=== PATIENT | male | born 1995 | race Two or more races ===

== ENCOUNTER 2021-10-23 16:26 | Emergency (ER) | payer MEDICAID ==
[~2021-10-23] VITALS: Ht 172.7 cm; Wt 90.0 kg
[2021-10-23 18:52] LABS: Basophils # (auto) 0.1 10 ^3/uL (0-0.2); Basophils % (auto) 0.6 % (0.0-2.0); Eosinophils # (auto) 0.1 10 ^3/uL (0-0.8); Hemoglobin 16.2 g/dL (13.5-17.5); Lymphocytes # (auto) 1.9 10 ^3/uL (0.4-5.4); Lymphocytes % (auto) 22.1 % (10.0-50.0); Mean Corpuscular Hemoglobin 28.6 pg (28.0-32.0); Mean Corpuscular Volume 86.5 fL (80.0-100.0); Monocytes # (auto) 0.7 10 ^3/uL (0-1.3); Monocytes % (auto) 8.1 % (0.0-12.0); Neutrophils # (auto) 5.9 10 ^3/uL (1.6-8.6); Neutrophils % (auto) 68.2 % (37.0-80.0); Red Blood Cells 5.67 10^6/uL (4.5-5.90); White Blood Cell 8.7 10^3/uL (4.4-10.8)
[2021-10-23 19:04] LABS: Albumin 4.4 g/dL (3.4-5.0); BUN/Creatinine Ratio 14.7; Calcium 9.3 mg/dL (8.5-10.1); Potassium 4.2 mmol/L (3.5-5.1)
[2021-10-23 19:07] LABS: Bilirubin, Total 0.6 mg/dL (0.2-1.0); Total Protein 7.5 g/dL (6.4-8.2)
[2021-10-23 19:24] LABS: Salicylate < 1.7 mg/dL (2.8-20.0)
[2021-10-23 19:26] LABS: Acetaminophen < 2.0 ug/mL (10-30)
[2021-10-24 03:47] LABS: Alcohol, Urine < 3.0 mg/dL (0-10); Amphetamine Screen, Urine NEGATIVE (NEGATIVE); Barbiturate Scree,Urine NEGATIVE (NEGATIVE); Benzodiazephine Screen, Urine POSITIVE (NEGATIVE); Cannabinoid Screen, Urine NEGATIVE (NEGATIVE); Cocaine Screen, Urine NEGATIVE (NEGATIVE); Opiate Scree,Urine NEGATIVE (NEGATIVE); Phencyclidine Screen, Urine NEGATIVE (NEGATIVE)
[2021-10-24 03:52] LABS: Urine Bacteria NONE SEEN /hpf (None Seen); Urine Blood Negative /uL (Negative); Urine Mucus FEW (None Seen); Urine Specific Gravity 1.035 (1.001-1.035); Urine WBC 44 /hpf (0 - 3)
[2021-10-24 05:36] VITALS: BP 123/78
== END 2021-10-24 08:39 | disposition left against medical advice (07) ==
LOC: ER 16:26 → EDBD 16:26 → ER 10-24 08:39
DX: R45.851 Suicidal ideations (principal)
CPT/HCPCS: 36415; 70450; 80053; 80307; 80320; 80329; 81001; 85025

== ENCOUNTER 2024-03-27 15:27 | Emergency (ER) | payer MEDICAID, OTHER ==
[~2024-03-27] VITALS: Ht 172.7 cm; Wt 103.0 kg
--- NOTE | 2024-03-27 15:55 | ED.PDOC ---
History of Present Illness HPI Comments 28-year-old male who comes in with chief complaint of abdominal pain as well as diarrhea, nausea and chills. The patient states that symptoms started over the last couple of days. He states that his son was sick and he had somewhat similar symptoms. There has been no vomiting at this time. He was able to a mbulate into the emergency department's without any difficulty. Time Seen by MD: 15:50 Reviewed Notes: Nurses Notes, Medications, Allergies (No allergies to medications) Allergies: Coded Allergies: NO KNOWN ALLERGIES (Unverified , 06/27/15) Home Meds Active Scripts Ondansetron Odt 4MG Tab (ZOFRAN PO) 4 Mg Tb, 4 MG PO Q8HP PRN for 5 Days, #15 TAB ODT TAB-DISSOLVE IN MOUTH, THEN SWALLOW Prov:ROME ARROYO MD 03/27/24 Pantoprazole Sodium Sesquihydr (Protonix) 40 Mg Tab, 40 MG PO DAILY, #30 TAB Prov:ROME ARROYO MD 03/27/24 Information Source: Patient Mode of Arrival: Ambulatory Severity: Moderate Duration: Since onset Prehospital treatment: None Location: Right-sided abdominal pain Quality The pain is sharp in nature Associated signs and symptoms The patient was having some nausea as well as diarrhea Past Medical History PAST MEDICAL HISTORY: Kidney Stones Surgical History: Denies all surgeries Family History Family History: Family hx of DM Social History Smoker: Non-Smoker Alcohol: Denies ETOH Use Drugs: Denies Drug Use Lives In: Home Constitutional: reports: chills; denies: diaphoresis, fatigue, fever, malaise, sweats, weakness, others EENTM: denies: blurred vision, double vision, ear bleeding, ear discharge, ear drainage, ear pain, ear ringing, eye pain, eye redness, hearing loss, mouth pain, mouth swelling, nasal discharge, nose bleeding, nose congestion, nose pain, photophobia, tearing, throat pain, throat swelling, voice changes, others Respiratory: denies: cough, hemoptysis, orthopnea, SOB at rest, shortness of breath, SOB with excertion, stridor, wheezing, others Cardiovascular: denies: chest pain, dizzy spells, diaphoresis, Dyspnea on exertion, edema, irregular heart beat, left arm pain, lightheadedness, palpitations, PND, syncope, others Gastrointestinal: reports: abdominal pain, diarrhea, nausea; denies: abdomen distended, blood streaked bowels, constipated, dysphagia, difficulty swallowing, hematemesis, melena, poor appetite, poor fluid intake, rectal bleeding, rectal pain, vomiting, others Genitourinary: denies: burning, dysuria, flank pain, frequency, hematuria, incontinence, penile discharge, penile sore, pain, testicle pain, testicle swelling, urgency, others Neurological: denies: dizziness, fainting, headache, left sided numbness, left sided weakness, numbness, paresthesia, pre-existing deficit, right sided numbness, right sided weakness, seizure, speech problems, tingling, tremors, weakness, others Musculoskeletal: denies: back pain, gout, joint pain, joint swelling, muscle pain, muscle stiffness, neck pain, others Integumetry: denies: bruises, change in color, change in hair/nails, dryness, laceration, lesions, lumps, rash, wounds, others Allergic/Immunocompromised: denies: Difficulty Healing, Frequent Infections, Hives, Itching, others Hematologic/Lymphatic: denies: anemia, blood clots, easy bleeding, easy bruising, swollen glands, others Endocrine: denies: excessive hunger, excessive sweating, excessive thirst, excessive urination, flushing, intolerance to cold, intolerance to heat, unexplained weight gain, unexplained weight loss, others Psychiatric: denies: anxiety, bipolar disorder, depression, hopeless, panic disorder, schizophrenia, sleepless, suicidal, others Physical Exam General Appearance: Moderate Distress HEENT: Normal ENT Inspection, Pharynx Normal, TMs Normal Neck: Full Range of Motion, Non-Tender, Normal, Normal Inspection Respiratory: Chest Non-Tender, Lungs Clear, No Accessory Muscle Use, No Respiratory Distress, Normal Breath Sounds Cardiovascular: No Edema, No JVD, No Murmur, No Gallop, Normal Peripheral Pulses, Regular Rate/Rhythm Breast Exam: Deferred Gastrointestinal: No Organomegaly, No Pulsatile Mass, Normal Bowel Sounds, RLQ, RUQ, Soft, Tenderness Genitalia: Deferred Pelvic: Deferred Rectal: Deferred Extremities: No calf tenderness, Normal capillary refill, Normal inspection, Normal range of motion, Non-tender, No pedal edema Musculoskeletal : Apperance: Normal Neurologic: Alert, 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 Was a procedure done?: No Differential Dx Considerations may include: gastritis, gastroenteritis X-Ray, Labs, Meds, VS Vital Signs Date Time Temp Pulse Resp B/P (MAP) Pulse Ox O2 Delivery O2 Flow Rate FiO2 03/27/24 17:43 94 18 96 Room Air 03/27/24 17:43 98.3 94 18 131/87 (102) 96 98.3 03/27/24 16:07 98.0 88 20 136/85 (102) 97 Lab Test 03/27/24 16:29 Range/Units White Blood Count 6.5 4.4-10.8 10^3/uL Red Blood Count 6.10 H 4.5-5.90 10^6/uL Hemoglobin 18.1 H 13.5-17.5 g/dL Hematocrit 53.4 H 41.0-53.0 % Mean Corpuscular Volume 87.5 80.0-100.0 fL Mean Corpuscular Hemoglobin 29.7 28.0-32.0 pg Mean Corpuscular Hemoglobin Concent 33.9 32.0-36.0 g/dL Red Cell Distribution Width 14.2 11.8-14.3 % Platelet Count 200 140-450 10^3/uL Mean Platelet Volume 8.2 6.9-10.8 fL Neutrophils (%) (Auto) 37.0-80.0 % Lymphocytes (%) (Auto) 10.0-50.0 % Monocytes (%) (Auto) 0.0-12.0 % Basophils (%) (Auto) 0.0-2.0 % Neutrophils # (Auto) 1.6-8.6 10 ^3/uL Lymphocytes # (Auto) 0.4-5.4 10 ^3/uL Monocytes # (Auto) 0-1.3 10 ^3/uL Differential Total Cells Counted 100.0 100 Neutrophils % (Manual) 64 37.0-80.0 Band Neutrophils % (Manual) 0 Lymphocytes % (Manual) 20 10.0-50.0 Monocytes % (Manual) 14 H 0-12 Eosinophils % (Manual) 2 0-7 Basophils % (Manual) 0 0.0-2.0 Metamyelocytes % (manual) 0 Myelocytes % (Manual) 0 Promyelocytes % (Manual) 0 Blast Cells % (Manual) 0 Reactive Lymphocytes 0 Platelet Estimate Adequate Sodium Level 138 136-145 mmol/L Potassium Level 3.4 L 3.5-5.1 mmol/L Chloride Level 106 98-107 mmol/L Carbon Dioxide Level 25 20-31 mmol/L Anion Gap 7 5-15 Blood Urea Nitrogen 15 9-23 mg/dL Creatinine 1.19 0.700-1.30 mg/dL Glomerular Filtration Rate Calc 86 >90 mL/min BUN/Creatinine Ratio 12.6 10.0-20.0 Serum Glucose 94 74-106 mg/dL Calcium Level 9.9 8.7-10.4 mg/dL Total Bilirubin 0.4 0.2-1.0 mg/dL Aspartate Amino Transferase (AST) 30 13-40 U/L Alanine Aminotransferase (ALT) 64 H 7-40 U/L Alkaline Phosphatase 99 46-116 U/L Total Protein 7.7 5.7-8.2 g/dL Albumin 4.9 H 3.2-4.8 g/dL Lipase 42 12-53 U/L Current Medications Medications (Trade) Dose Ordered Sig/Renee Route Start Time Stop Time Status Last Admin Sodium Chloride 1,000 ml @ 1,000 mls/hr Q1H ONCE IVB 03/27/24 16:15 03/27/24 17:14 DC 03/27/24 17:36 Ketorolac Tromethamine (Toradol Injection) 30 mg ONCE ONCE IV 03/27/24 16:15 03/27/24 16:16 DC 03/27/24 18:29 CT scan of the abdomen and pelvis shows: IMPRESSION: 1. There are bilateral small nonobstructive renal calculi measuring up to 5 mm. 2. There is no evidence of acute appendicitis. There are nonspecific small subcentimeter mesenteric lymph nodes which May relate to mesenteric adenitis. Clinical correlation is recommended. HS:Y the patient's chemistry panel is within normal limits The CBC is within normal limits At this time, the patient will be discharged on Zofran and Protonix The patient will return to the emergency department's condition worsens The patient understands and agrees with the management. Images Reviewed?: Images reviewed and evaluated by me Time of 1ST Reevaluation: 16:20 Reevaluation 1ST: Unchanged Patient Education/Counseling: Diagnosis, Treatment, Prognosis, Need For Follow Up Family Education/Counseling: No Family Present Departure 1 Departure Time of Disposition: 16:02 Impression: Primary Impression: Abdominal pain Qualified Codes: R10.9 - Unspecified abdominal pain Additional Impression: Acute gastritis Qualified Codes: K29.00 - Acute gastritis without bleeding Disposition: HOME / SELF CARE / HOMELESS Condition: Fair e-Prescriptions Ondansetron Odt 4MG Tab (ZOFRAN PO) 4 Mg Tb 4 MG PO Q8HP PRN for 5 Days, #15 TAB ODT TAB-DISSOLVE IN MOUTH, THEN SWALLOW Prov: ROME ARROYO MD 03/27/24 Pantoprazole Sodium Sesquihydr (Protonix) 40 Mg Tab 40 MG PO DAILY, #30 TAB Prov: ROME ARROYO MD 03/27/24 Discharged With: Self Critical Care Note Critical Care Time?: No Stability Stability form required: No Heart Score Heart Score: Heart Score Response (Comments) Value History N/A 0 EKG N/A 0 Age N/A 0 Risk Factors N/A 0 Troponin N/A 0 Total 0 I personally scribed for ROME ARROYO MD ([email or web address]) on 03/27/24 at 15:55. Electronically submitted by Raymundo Holley ([email or web address]). I personally scribed for ROME ARROYO MD ([email or web address]) on 03/27/24 at 17:33. Electronically submitted by Raymundo Holley ([email or web address]). ROME ARROYO MD Mar 27, 2024 15:55
--- NOTE | 2024-03-27 16:46 | DVH ---
CT ABDOMEN AND PELVIS WITHOUT CONTRAST CLINICAL HISTORY: right sided abd pain TECHNIQUE: Multiple contiguous axial images of the abdomen and pelvis without intravenous contrast. The images were reformatted degenerate coronal and sagittal reconstructions. All CT scans at this medical facility are performed using dose modulation techniques as appropriate t o a performed exam including the following:Automated exposure control was utilized; adjustment of the MA and/or KV according to patient size; and use of iterative reconstruction technique. Radiation Dose Information: CT Dose: CTDI volume is 24 mGy. Dose-length product is 15 19 mGy*cm Comparison: None FINDINGS: Evaluation of the abdomen and pelvis is limited without intravenous contrast. There are several left upper pole renal calculi measuring up 5 mm. There is a 2 mm calculus in the upper pole of the right k idney. There is no hydronephrosis. There is no evidence of a ureteral calculus or hydroureter. The liver, gallbladder, pancreas, kidneys, adrenal glands, and spleen appear within normal limits. There are nonspecific small subcentimeter mesenteric lymph nodes. There is no retroperitoneal lymphad enopathy. There is no free fluid or free air. The stomach grossly appears unremarkable. The small and large bowel loops demonstrate normal caliber . A normal air-filled appendix is seen in the right lower quadrant abdomen. The abdominal aorta and IVC appear within normal limits. The bladder appears unremarkable for the degree of distention. Pelvic organ appears within normal rocha its. There is no gross evidence of a pelvic mass. There is no free fluid collection. Lung bases are clear. There is no acute osseous abnormality. IMPRESSION: 1. There are bilateral small nonobstructive renal calculi measuring up to 5 mm. 2. There is no evidence of acute appendicitis. There are nonspecific small subcentimeter mesenteric l ymph nodes which May relate to mesenteric adenitis. Clinical correlation is recommended. HS:Y
[2024-03-27 16:57] LABS: Hemoglobin 18.1 g/dL (13.5-17.5)
[2024-03-27 16:59] LABS: Hematocrit 53.4 % (41.0-53.0); Mean Corpuscular Hemoglobin 29.7 pg (28.0-32.0); Mean Corpuscular Hgb Conc. 33.9 g/dL (32.0-36.0); Mean Corpuscular Volume 87.5 fL (80.0-100.0); Platelet Count (auto) 200 10^3/uL (140-450); Red Cell Distribution Width 14.2 % (11.8-14.3); White Blood Cell 6.5 10^3/uL (4.4-10.8)
[2024-03-27 17:00] LABS: Alkaline Phosphatase 99 U/L (46-116); Anion Gap 7 (5-15); Aspartate Aminotransferase 30 U/L (13-40); BUN/Creatinine Ratio 12.6 (10.0-20.0); Bilirubin, Total 0.4 mg/dL (0.2-1.0); Blood Urea Nitrogen 15 mg/dL (9-23); Calcium 9.9 mg/dL (8.7-10.4); Carbon Dioxide 25 mmol/L (20-31); Chloride 106 mmol/L (98-107); Glucose 94 mg/dL (74-106); Sodium 138 mmol/L (136-145)
[2024-03-27 17:01] LABS: Total Protein 7.7 g/dL (5.7-8.2)
[2024-03-27 17:11] LABS: Alanine Aminotransferase 64 U/L (7-40); Albumin 4.9 g/dL (3.2-4.8); Potassium 3.4 mmol/L (3.5-5.1)
[2024-03-27 17:13] LABS: Band Neutrophils % (manual) 0; Basophils % (manual) 0 (0.0-2.0); Blast Cells 0; Metamyelocytes % 0; Myelocytes % 0; Promyelocytes % 0; Reactive Lymphocytes 0
[2024-03-27 17:21] LABS: Lipase 42 U/L (12-53)
[2024-03-27] MEDS: SODIUM CHLORIDE 0.9% 1,000 ML IVB ONE (17:36)
[2024-03-27] MEDS: KETOROLAC TROMETH 30 MG/ML 1ML VIAL IV ONE (18:29)
[2024-03-27 19:16] LABS: Eosinophils % (manual) 2 (0-7); Lymphocytes % (manual) 20 (10.0-50.0); Monocytes % (manual) 14 (0-12); Platelet Estimate Adequate
[2024-03-27] MEDS ORDERED: ZOFR4T PO (19:22)
[2024-03-27] MEDS ORDERED: PANT40TA2 PO (19:22)
[2024-03-27 19:55] VITALS: BP 105/75; PULSE 89; RESP 18; TEMP 98; O2SAT 98
== END 2024-03-27 20:47 | disposition home or self-care (01) ==
LOC: ER 15:27
DX: K29.00 Acute gastritis without bleeding (principal); Z79.899 Other long term (current) drug therapy
CPT/HCPCS: 36415; 74176; 80053; 83690; 85007; 85027; 96361; 96374; 99285; J1885; J7030

== ENCOUNTER 2024-03-30 23:36 | Emergency (ER) | payer MEDICAID ==
[~2024-03-30] VITALS: Ht 177.8 cm; Wt 101.8 kg
[~2024-03-30 23:36] MED LIST: PANT40TA2 PO; ZOFR4T PO
--- NOTE | 2024-03-31 | ED.PDOC ---
History of Present Illness HPI Comments 28-year-old male brought in by ambulance complains of sudden onset severe right flank pain about 1 hour ago while driving a car. Patient states that he was told he had undescended kidney stones few days ago. Unprovoked. Chief Complaint: Flank Pain Time Seen by MD: 23:46 Allergies: Coded Allergies: NO KNOWN ALLERGIES (Unverified , 06/27/15) Home Meds Active Scripts Meloxicam (Meloxicam) 7.5 Mg Tab, 1 TAB PO DAILY PRN for 10 Days, #10 TAB 2 Refills Prov:NESTOR MARTIN MD 03/31/24 Tamsulosin Hcl (Flomax) 0.4 Mg Cap, 1 CAP PO qhs for 10 Days, #20 CAP 11 Refills Prov:NESTOR MARTIN MD 03/31/24 Ondansetron Odt 4MG Tab (ZOFRAN PO) 4 Mg Tb, 4 MG PO Q8HP PRN for 5 Days, #15 T AB ODT TAB-DISSOLVE IN MOUTH, THEN SWALLOW Prov:ROME ARROYO MD 03/27/24 Pantoprazole Sodium Sesquihydr (Protonix) 40 Mg Tab, 40 MG PO DAILY, #30 TAB Prov:ROME ARROYO MD 03/27/24 Information Source: Patient Mode of Arrival: EMS Severity: Severe Timing: Hours Duration: Since onset Past Medical History PAST MEDICAL HISTORY: Kidney Stones Surgical History: Denies all surgeries Family History Family History: Family hx of DM Social History Smoker: Non-Smoker Alcohol: Denies ETOH Use Drugs: Denies Drug Use Lives In: Home Gastrointestinal: reports: abdominal pain, nausea, others (Right flank pain) All Other Systems: Reviewed and Negative Physical Exam General Appearance: Moderate Distress, Normal HEENT: Normal ENT Inspection, Pharynx Normal, TMs Normal Neck: Full Range of Motion, Non-Tender, Normal, Normal Inspection Respiratory: Chest Non-Tender, Lungs Clear, No Accessory Muscle Use, No Respiratory Distress, Normal Breath Sounds Cardiovascular: No Edema, No JVD, No Murmur, No Gallop, Normal Peripheral Pulses, Regular Rate/Rhythm Breast Exam: Deferred Gastrointestinal: Non Tender, Soft, Other (Patient points to right flank where he is having the pain but states it does not hurt to touch) Genitalia: Deferred Pelvic: Deferred Rectal: Deferred Extremities: No calf tenderness, Normal capillary refill, Normal inspection, Normal range of motion, Non-tender, No pedal edema Musculoskeletal : Apperance: Normal Neurologic: Alert, gin inspector II-XII nml as Tested, No Motor Deficits, Normal Affect, Normal Mood, No Sensory Deficits Cerebellar Function: Normal Reflexes: Normal Skin: Dry, Normal Color, Warm Lymphatic: No Adenopathy Was a procedure done? Was a procedure done?: No Differential Dx Considerations may include: Differential diagnosis includes but is not limited to: ureteral colic / stone, Aortic aneurysm or dissection, pyelonephritis, acute renal failure, musculoskeletal etiology and others X-Ray, Labs, Meds, VS Vital Signs Date Time Temp Pulse Resp B/P (MAP) Pulse Ox O2 Delivery O2 Flow Rate FiO2 03/31/24 02:54 97.8 81 20 110/69 (83) 95 97.8 03/31/24 02:54 81 20 95 Room Air 03/30/24 23:39 97.8 78 29 156/103 (120) 99 Lab Test 03/31/24 00:24 Range/Units White Blood Count 5.3 4.4-10.8 10^3/uL Red Blood Count 5.08 4.5-5.90 10^6/uL Hemoglobin 14.9 # 13.5-17.5 g/dL Hematocrit 43.9 # 41.0-53.0 % Mean Corpuscular Volume 86.4 80.0-100.0 fL Mean Corpuscular Hemoglobin 29.4 28.0-32.0 pg Mean Corpuscular Hemoglobin Concent 34.0 32.0-36.0 g/dL Red Cell Distribution Width 13.8 11.8-14.3 % Platelet Count 197 140-450 10^3/uL Mean Platelet Volume 7.4 6.9-10.8 fL Neutrophils (%) (Auto) 30.8 L 37.0-80.0 % Lymphocytes (%) (Auto) 51.8 H 10.0-50.0 % Monocytes (%) (Auto) 15.0 H 0.0-12.0 % Eosinophils (%) (Auto) 2.0 0.0-7.0 % Basophils (%) (Auto) 0.4 0.0-2.0 % Neutrophils # (Auto) 1.6 1.6-8.6 10 ^3/uL Lymphocytes # (Auto) 2.8 0.4-5.4 10 ^3/uL Monocytes # (Auto) 0.8 0-1.3 10 ^3/uL Eosinophils # (Auto) 0.1 0-0.8 10 ^3/uL Basophils # (Auto) 0 0-0.2 10 ^3/uL Nucleated Red Blood Cells 0.0 % Sodium Level 143 # 136-145 mmol/L Potassium Level 3.5 3.5-5.1 mmol/L Chloride Level 109 H 98-107 mmol/L Carbon Dioxide Level 26 20-31 mmol/L Anion Gap 8 5-15 Blood Urea Nitrogen 11 9-23 mg/dL Creatinine 1.03 0.700-1.30 mg/dL Glomerular Filtration Rate Calc 103 >90 mL/min BUN/Creatinine Ratio 10.7 10.0-20.0 Serum Glucose 98 74-106 mg/dL Calcium Level 9.3 8.7-10.4 mg/dL Total Bilirubin 0.3 0.2-1.0 mg/dL Aspartate Amino Transferase (AST) 42 H 13-40 U/L Alanine Aminotransferase (ALT) 86 H 7-40 U/L Alkaline Phosphatase 84 46-116 U/L Total Protein 6.4 5.7-8.2 g/dL Albumin 4.2 3.2-4.8 g/dL Lipase 44 12-53 U/L Current Medications Medications (Trade) Dose Ordered Sig/Renee Route Start Time Stop Time Status Last Admin Ketorolac Tromethamine (Toradol Injection) 15 mg ONCE ONCE IV 03/31/24 00:00 03/31/24 00:01 [place] 03/31/24 02:59 Sodium Chloride 1,000 ml @ 1,000 mls/hr Q1H ONCE IV 03/31/24 00:00 03/31/24 00:59 DC 03/31/24 02:43 Tamsulosin HCl (Flomax) 0.4 mg ONCE ONCE PO 03/31/24 02:15 03/31/24 02:16 DC 03/31/24 02:53 Time of 1ST Reevaluation: 00:00 Reevaluation 1ST: Unchanged Time of 2ND Reevaluation: 02:00 Reevaluation 2ND: Improved Patient Education/Counseling: Diagnosis, Treatment Family Education/Counseling: No Family Present Departure 1 Departure Time of Disposition: 02:00 Impression: Primary Impression: Ureteral calculus, right Disposition: HOME / SELF CARE / HOMELESS Condition: Stable e-Prescriptions Meloxicam (Meloxicam) 7.5 Mg Tab 1 TAB PO DAILY PRN for 10 Days, #10 TAB 2 Refills Prov: NESTOR MARTIN MD 03/31/24 Tamsulosin Hcl (Flomax) 0.4 Mg Cap 1 CAP PO qhs for 10 Days, #20 CAP 11 Refills Prov: NESTOR MARTIN MD 03/31/24 Discharged With: Self Critical Care Note Critical Care Time?: No Stability Stability form required: No NESTOR MARTIN MD Mar 31, 2024 00:00
[2024-03-31 00:36] LABS: Basophils # (auto) 0 10 ^3/uL (0-0.2); Basophils % (auto) 0.4 % (0.0-2.0); Eosinophils # (auto) 0.1 10 ^3/uL (0-0.8); Hematocrit 43.9 % (41.0-53.0); Hemoglobin 14.9 g/dL (13.5-17.5); Lymphocytes # (auto) 2.8 10 ^3/uL (0.4-5.4); Lymphocytes % (auto) 51.8 % (10.0-50.0); Mean Corpuscular Hemoglobin 29.4 pg (28.0-32.0); Mean Corpuscular Volume 86.4 fL (80.0-100.0); Monocytes # (auto) 0.8 10 ^3/uL (0-1.3); Neutrophils # (auto) 1.6 10 ^3/uL (1.6-8.6); Neutrophils % (auto) 30.8 % (37.0-80.0); Platelet Count (auto) 197 10^3/uL (140-450); Red Blood Cells 5.08 10^6/uL (4.5-5.90); Red Cell Distribution Width 13.8 % (11.8-14.3); White Blood Cell 5.3 10^3/uL (4.4-10.8)
[2024-03-31 00:54] LABS: Albumin 4.2 g/dL (3.2-4.8); Alkaline Phosphatase 84 U/L (46-116); Anion Gap 8 (5-15); BUN/Creatinine Ratio 10.7 (10.0-20.0); Blood Urea Nitrogen 11 mg/dL (9-23); Calcium 9.3 mg/dL (8.7-10.4); Carbon Dioxide 26 mmol/L (20-31); Glucose 98 mg/dL (74-106); Lipase 44 U/L (12-53); Potassium 3.5 mmol/L (3.5-5.1); Sodium 143 mmol/L (136-145)
[2024-03-31 00:55] LABS: Bilirubin, Total 0.3 mg/dL (0.2-1.0); Total Protein 6.4 g/dL (5.7-8.2)
[2024-03-31 00:59] LABS: Alanine Aminotransferase 86 U/L (7-40); Aspartate Aminotransferase 42 U/L (13-40); Chloride 109 mmol/L (98-107)
--- NOTE | 2024-03-31 01:53 | DVH ---
CLINICAL HISTORY: severe right flank pain TECHNIQUE: CT of the abdomen and pelvis was performed without intravenous contrast. This exam was per formed according to our departmental dose optimization program. Up-to-date CT equipment and radiation dose reduction techniques are utilized as appropriate. CTDI: [CTDIvol] DLP: 862.67 WID: COMPARISON: CT CT AB PEL WO CON-NO ORAL OR IV on DOS: 03/27/24 FINDINGS: Lower Thorax: Normal-sized heart. Linear bibasilar scarring or atelectasis. Liver and Biliary system: Unremarkable. Spleen: Mild splenomegaly Adrenal Glands and Kidneys: Normal adrenal glands. There is a 2-3 mm obstructing calculus in the righ t UVJ causing mild right hydroureteronephrosis. Small nonobstructing left upper pole renal calculi. Pancreas and Retroperitoneum: Unremarkable. Aorta and Major Vessels: Unremarkable. Bowel, Mesentery and Peritoneal space: Normal caliber bowel loops. Normal appendix. No free air or fluid collection. Pelvis: Unremarkable. Abdominal wall and Osseous Structures: No destructive osseous lesion. IMPRESSION: 1. Obstructing 2-3 mm calculus in the right UVJ causing mild right hydroureteronephrosis 2. Small nonobstructing left upper pole renal calculi. 3. Mild splenomegaly
[2024-03-31] MEDS ORDERED: MELO7.5T7 PO (02:16)
[2024-03-31] MEDS ORDERED: TAMS-35 PO (02:16)
[2024-03-31] MEDS: SODIUM CHLORIDE 0.9% 1,000 ML IV ONE (02:43)
[2024-03-31] MEDS: TAMSULOSIN HYDROCHLORIDE 0.4 MG CAP PO ONE (02:53)
[2024-03-31 02:54] VITALS: TEMP 97.8
[2024-03-31] MEDS: KETOROLAC TROMETH 60MG/2ML VIAL IV ONE (02:59)
[2024-03-31] MEDS: HYDROmorphone HCL 2 MG/ML VL/or syr IV ONE (04:19)
[2024-03-31 04:47] VITALS: BP 128/84; PULSE 71; RESP 18; O2SAT 97
== END 2024-03-31 05:10 | disposition home or self-care (01) ==
LOC: ER 23:36 → EDBD 23:36 → ER 03-31 05:10
DX: N20.1 Calculus of ureter (principal)
CPT/HCPCS: 36415; 74176; 80053; 83690; 85025; 96361; 96374; 96375; 99285; J1171; J1885; 81001